=== PATIENT | male | born 1975 | race Caucasian/White ===

== ENCOUNTER 2017-04-21 10:52 | Emergency (ER) | payer OTHER ==
[~2017-04-21] VITALS: Ht 175.3 cm; Wt 69.8 kg
[~2017-04-21 10:52] MED LIST: AMOXICILLIN875 MG PO; TESSALON200 MG PO; ULTRAM50 MG PO
[2017-04-21 12:13] LABS: HEMATOCRIT 42.9 % (38.0-50.0); MCH 31.3 PG (29.0-34.0); MCHC 34.3 G/DL (30.0-36.0); MCV 91.5 FL (86-99); MEAN PLAT.VOLUME 11.1 uM^3 (9.0-12.4); PLATELET COUNT 204 K/uL (156-360); RBC DIS.WIDTH-CV 13.1 % (11.8-14.6); RBC DIS.WIDTH-SD 43.9 % (39-53); RED BLOOD COUNT 4.69 M/uL (4.00-5.50); WHITE BLOOD COUNT 14.6 K/uL (4.1-10.2)
[2017-04-21 12:19] LABS: ADD MIUA? YES; BILIRUBIN NEGATIVE; BLOOD LARGE; COLOR YELLOW ((YELLOW)); GLUCOSE (STRIP) NEGATIVE; KETONES 5; LEUKOCYTES NEGATIVE; NITRITE NEGATIVE; PROTEIN (STRIP) 30; SPECIFIC GRAVITY 1.029 (1.000-1.030); UROBILINOGEN 0.2 MG/DL (0.2-1.0)
[2017-04-21 12:20] LABS: CHLORIDE 102 mEq/L (99-109); SODIUM 139 mEq/L (136-147)
[2017-04-21 12:22] LABS: GLUCOSE 122 mg/dL (70-99)
[2017-04-21 12:23] LABS: ANION GAP 9 MEQ/L (2-14)
[2017-04-21 12:24] LABS: TOTAL BILIRUBIN 0.2 mg/dL (0.0-1.0)
[2017-04-21 12:25] LABS: ALKALINE PHOSPHATASE 73 IU/L (3-129)
[2017-04-21 12:26] LABS: GFR ESTIMATE (CALCULATED) > 59 mL/min/
[2017-04-21 12:27] LABS: UREA NITROGEN (BUN) 16 mg/dL (9-23)
[2017-04-21 12:56] LABS: BACTERIA RARE /HPF; CALCIUM OXALATE CRYSTALS 2+ /HPF; EPITHELIAL CELLS RARE /HPF; MUCUS 2+ /LPF; RED BLOOD CELLS 20-30 /HPF (0-5); UCUL ADDED? NO; WHITE BLOOD CELLS NONE SEEN /HPF (0-5)
[2017-04-21] MEDS ORDERED: FLOMAX0.4 MG PO (14:01)
[2017-04-21] MEDS ORDERED: TORADOL10 MG PO (14:01)
[2017-04-21] MEDS ORDERED: ULTRAM50 MG PO (14:03)
[2017-04-21] MEDS ORDERED: ZOFRAN4 MG PO (14:03)
[2017-04-21 15:26] VITALS: BP 173/108
== END 2017-04-21 15:28 | disposition home or self-care (01) ==
LOC: EME 10:52
PROVIDERS: Emergency Medicine
DX: N13.2 Hydronephrosis with renal and ureteral calculous obstruction (principal); N50.812 Left testicular pain; F17.200 Nicotine dependence, unspecified, uncomplicated
CPT/HCPCS: 74176; 80053; 81003; 85027; 99281; 99285; J1885; J2405; J7030

== ENCOUNTER 2017-09-01 10:09 | Emergency (ER) | payer OTHER ==
[~2017-09-01] VITALS: Ht 175.3 cm; Wt 68.2 kg
[~2017-09-01 10:09] MED LIST changes: +FLOMAX0.4 MG PO; +TORADOL10 MG PO; +ZOFRAN4 MG PO
[2017-09-01 11:13] VITALS: BP 141/90
== END 2017-09-01 11:13 ==
LOC: EME 10:09
DX: K04.7 Periapical abscess without sinus (principal)
CPT/HCPCS: 99281; 99284

== ENCOUNTER 2018-03-16 22:07 | Emergency (ER) | payer OTHER ==
[~2018-03-16] VITALS: Ht 175.3 cm; Wt 72.6 kg
[2018-03-16 23:19] LABS: APPEARANCE CLEAR ((CLEAR)); BILIRUBIN NEGATIVE; BLOOD NEGATIVE; COLOR YELLOW ((YELLOW)); GLUCOSE (STRIP) NEGATIVE; KETONES 5; LEUKOCYTES NEGATIVE; NITRITE NEGATIVE; PROTEIN (STRIP) 30; SPECIFIC GRAVITY 1.038 (1.000-1.030); UCUL ADDED? NO
[2018-03-16 23:20] LABS: HEMATOCRIT 38.6 % (38.0-50.0); HEMOGLOBIN 13.5 G/DL (12.5-16.6); MCV 91.5 FL (86-99); PLATELET COUNT 162 K/uL (156-360); RBC DIS.WIDTH-SD 43.8 % (39-53); RED BLOOD COUNT 4.22 M/uL (4.00-5.50); WHITE BLOOD COUNT 8.3 K/uL (4.1-10.2)
[2018-03-16 23:30] LABS: CHLORIDE 109 mEq/L (99-109); POTASSIUM 3.8 mEq/L (3.7-5.4); SODIUM 143 mEq/L (136-147)
[2018-03-16 23:32] LABS: GLUCOSE 94 mg/dL (70-99); TOTAL PROTEIN 6.9 g/dL (6.4-8.3)
[2018-03-16 23:34] LABS: TOTAL BILIRUBIN 0.2 mg/dL (0.0-1.0)
[2018-03-16 23:35] LABS: ALKALINE PHOSPHATASE 104 IU/L (3-129)
[2018-03-16 23:36] LABS: CREATININE 0.8 mg/dL (0.6-1.3); GFR ESTIMATE (CALCULATED) > 59 mL/min/ (58.99-99999)
[2018-03-16 23:37] LABS: AST (GOT) 56 IU/L (2-34); UREA NITROGEN (BUN) 15 mg/dL (9-23)
[2018-03-16 23:39] LABS: ALT (GPT) 35 IU/L (3-49); LIPASE 25 U/L (1.0-51.0)
[2018-03-17] MEDS ORDERED: MOTRIN600 MG PO (00:11)
[2018-03-17 00:13] VITALS: BP 130/72
== END 2018-03-17 00:16 | disposition home or self-care (01) ==
LOC: EME 22:07 → TRA 22:07
PROVIDERS: Physician Assistant
DX: S20.229A Contusion of unspecified back wall of thorax, initial encounter (principal); W11.XXXA Fall on and from ladder, initial encounter; J32.9 Chronic sinusitis, unspecified; F17.200 Nicotine dependence, unspecified, uncomplicated
CPT/HCPCS: 70450; 71260; 72125; 72128; 72129; 72131; 72132; 74177; 80053; 81003; 83690; 85027; 86850; 86900; 86901; 99281; 99285; J2405